=== PATIENT | male | born 1950 | race Caucasian/White ===

== ENCOUNTER 2021-02-27 14:59 | Observation (INO) | payer OTHER ==
[~2021-02-27] VITALS: Ht 175.3 cm; Wt 89.9 kg
[2021-02-27 15:27] LABS: BASOPHILS % (AUTO) 0.8 % (0.0-5.0); EOSINOPHILS % (AUTO) 2.9 % (0.0-8.0); LYMPHOCYTES % (AUTO) 21.3 % (21.0-51.0); MEAN CORPUSCULAR HEMOGLOBIN 27.5 pg (27.0-33.0); MEAN CORPUSCULAR HGB CONC 32.9 g/dL (32.0-36.0); MEAN CORPUSCULAR VOLUME 83.8 fL (79-99); MONOCYTES % (AUTO) 10.5 % (3.0-13.0); NEUTROPHILS % (AUTO) 63.8 % (40.0-77.0); PLATELET COUNT (AUTO) 245 K/uL (130-400); RED BLOOD CELL COUNT(AUTO) 5.01 MIL/uL (4.50-6.20); RED CELL DISTRIBUTION WIDTH 14.5 % (11.0-15.5); WHITE BLOOD COUNT (AUTO) 7.6 K/uL (4.8-10.8)
[2021-02-27 15:37] LABS: CREATININE 1.3 mg/dL (0.5-1.5); POTASSIUM 4.3 mmol/L (3.5-5.1)
[2021-02-27 15:39] LABS: INR 0.99 (0.85-1.15); PROTHROMBIN TIME 10.8 SEC (9.6-11.6)
[2021-02-27 15:41] LABS: PARTIAL THROMBOPLASTIN TIME 30.6 SEC (26.3-35.5)
[2021-02-27 15:46] LABS: B-TYPE NATRIURETIC PEPTIDE 7 pg/mL (0-100)
[2021-02-27 15:48] LABS: ALBUMIN 4.2 g/dL (3.5-5.0); BILIRUBIN,TOTAL 0.3 mg/dL (0.2-1.0); TOTAL PROTEIN, SERUM 7.3 g/dL (6.0-8.3)
[2021-02-27] MEDS ORDERED: MORPHINE 2 MG SYG IVP PRN (18:00)
[2021-02-27] MEDS ORDERED: ACETAMINOPHEN 325 MG TAB PO PRN (18:00)
[2021-02-27] MEDS ORDERED: DEXTROSE 50%-WATER 50 ML DISP.SYRIN IV PRN (18:00)
[2021-02-27] MEDS ORDERED: GLUCAGON 1MG KIT 1 MG ML IM PRN (18:00)
[2021-02-27] MEDS ORDERED: ONDANSETRON 4MG INJ IVP PRN (18:00)
[2021-02-27 18:17] LABS: APPEARANCE,URINE Clear (CLEAR); BILIRUBIN,URINE Negative (NEGATIVE); COLOR,URINE Yellow (YELLOW); GLUCOSE, URINE (UA) 500 mg/dL (NEGATIVE); KETONES,URINE Negative (NEGATIVE); LEUKOCYTE ESTERASE ,URINE Negative (NEGATIVE); NITRATE,URINE Negative (NEGATIVE); OCCULT BLOOD,URINE Negative (NEGATIVE); PROTEIN,URINE Negative (NEGATIVE)
[2021-02-27 18:27] LABS: BACTERIA,URINE Rare /HPF (None Seen); RBC,URINE 0-1 /HPF (0-1); WBC,URINE 0-1 /HPF (0-1)
[2021-02-27 18:28] LABS: MUCUS,URINE Rare LPF (None Seen); SQUAMOUS EPITHELIAL CELL,UR 0-2 /HPF (0-2)
[2021-02-27 18:33] LABS: HEMOGLOBIN A1C 6.8 % (4.0-6.0)
[2021-02-27 18:49] LABS: CHOLESTEROL 147 mg/dL (<200); HDL CHOLESTEROL 41 mg/dL (29-71); LDL DIRECT 75 mg/dL (0-99); TRIGLYCERIDES 216 mg/dL (30-200)
[2021-02-27] MEDS: FAMOTIDINE 20MG TAB PO SCH (21:00)
[2021-02-27] MEDS ORDERED: METO-408 PO (23:04)
[2021-02-27] MEDS ORDERED: SIMV-43 PO (23:17)
[2021-02-27] MEDS ORDERED: FLUT15.845 NS (23:17)
[2021-02-27] MEDS ORDERED: LEVO5TAB13 PO (23:17)
[2021-02-27] MEDS ORDERED: AMLO-257 PO (23:17)
[2021-02-27] MEDS ORDERED: FENO145T26 PO (23:17)
[2021-02-27] MEDS ORDERED: METF-444 PO (23:17)
[2021-02-27] MEDS ORDERED: MONT-39 PO (23:17)
[2021-02-27] MEDS ORDERED: HYDR-4154 PO (23:17)
[2021-02-27] MEDS ORDERED: PANT40TA54 PO (23:17)
[2021-02-27] MEDS ORDERED: RAMI10CA69 PO (23:17)
[2021-02-27] MEDS ORDERED: CYAN1TAB44 PO (23:17)
[2021-02-27] MEDS ORDERED: CLOP75TA32 PO (23:17)
[2021-02-27] MEDS ORDERED: APIX5TAB PO (23:17)
[2021-02-28] VITALS (9 sets, daily range): BP systolic 132–171; BP diastolic 61–86
[2021-02-28] MEDS: INSULIN HUMULIN R 100 UNIT/ML 3ML SQ SCH ×4 (00:01→16:30)
[2021-02-28 06:09] LABS: BASOPHILS % (AUTO) 0.7 % (0.0-5.0); EOSINOPHILS % (AUTO) 2.5 % (0.0-8.0); HEMATOCRIT 43.6 % (42-54); LYMPHOCYTES % (AUTO) 23.3 % (21.0-51.0); MEAN CORPUSCULAR HEMOGLOBIN 27.3 pg (27.0-33.0); MEAN CORPUSCULAR HGB CONC 32.3 g/dL (32.0-36.0); MEAN CORPUSCULAR VOLUME 84.5 fL (79-99); NEUTROPHILS % (AUTO) 60.9 % (40.0-77.0); PLATELET COUNT (AUTO) 242 K/uL (130-400); RED BLOOD CELL COUNT(AUTO) 5.16 MIL/uL (4.50-6.20); RED CELL DISTRIBUTION WIDTH 14.3 % (11.0-15.5); WHITE BLOOD COUNT (AUTO) 7.2 K/uL (4.8-10.8)
[2021-02-28 06:26] LABS: ALBUMIN 3.9 g/dL (3.5-5.0); BILIRUBIN,TOTAL 0.4 mg/dL (0.2-1.0); CREATININE 1.3 mg/dL (0.5-1.5); POTASSIUM 4.1 mmol/L (3.5-5.1)
[2021-02-28] MEDS: FAMOTIDINE 20MG TAB PO SCH (09:00)
[2021-02-28] MEDS ORDERED: ENOXAPARIN SODIUM 30 MG/0.3 ML SQ SCH (09:00)
[2021-02-28] MEDS ORDERED: ASPIRIN 81MG CHEW TAB PO SCH (09:00)
[2021-02-28] MEDS ORDERED: HEPARIN 10,000 UNIT/10ML (1,000 UNIT/ML) VIAL ONE (12:30)
[2021-02-28] MEDS ORDERED: NITROGLYCERIN 2 MG VIAL IV ONE (12:30)
[2021-02-28] MEDS ORDERED: SODIUM BICARB 50MEQ 50ML VIAL 50 ML ONE (12:30)
[2021-02-28] MEDS ORDERED: LIDOCAINE HCL 400MG/20ML VIAL ONE (12:31)
[2021-02-28] MEDS ORDERED: IOHEXOL 350 MG/ML 100ML INFUS..BTL IV ONE ×2 (12:31→14:39)
[2021-02-28] MEDS ORDERED: IOHEXOL-350 50ML VIAL IV ONE (12:31)
[2021-02-28] MEDS ORDERED: MEPERIDINE-PF 25 MG/ML SYG ONE ×2 (13:46→14:23)
[2021-02-28] MEDS ORDERED: MIDAZOLAM HCL 1 MG/ML 2ML VIAL ONE ×2 (13:46→14:23)
[2021-02-28] MEDS ORDERED: NICARDIPINE 25MG INJ IV ONE (14:09)
[2021-02-28] MEDS ORDERED: 0.9%NACL 1000ML 1,000 ML IV SCH (15:00)
[2021-02-28] MEDS ORDERED: FAMOTIDINE 20MG TAB ONE (19:20)
[2021-02-28] MEDS ORDERED: FENOFIBRATE NANOCRYSTALLIZED 145 MG TAB PO SCH (21:00)
[2021-02-28] MEDS ORDERED: SIMVASTATIN 20 MG TABLET PO SCH (21:00)
[2021-02-28] MEDS ORDERED: NON-FORMULARY MEDICATION 1 EACH (Hydralazine HCl 50 MG) PO SCH (21:00)
[2021-02-28] MEDS ORDERED: APIXABAN 5 MG TABLET PO SCH (21:00)
[2021-02-28] MEDS ORDERED: METFORMIN HCL 500 MG TABLET PO SCH (21:00)
[2021-02-28] MEDS ORDERED: Ramipril 10 MG PO SCH (21:00)
[2021-02-28] MEDS ORDERED: METOPROLOL SUCCINATE 50 MG TAB.SR.24H PO SCH (21:00)
[2021-02-28] MEDS ORDERED: NON-FORMULARY MEDICATION 1 EACH (Metoprolol Succinate 25 MG) PO SCH (21:00)
[2021-02-28] MEDS ORDERED: HYDRALAZINE 25MG TABLET PO SCH (21:00)
[2021-03-01] MEDS ORDERED: AMLODIPINE 5 MG TAB PO SCH (09:00)
[2021-03-01] MEDS ORDERED: Vitamin B Complex/Vit C/Folic Acid PO SCH (09:00)
[2021-03-01] MEDS ORDERED: PANTOPRAZOLE 40 MG TAB DR PO SCH (09:00)
[2021-03-01] MEDS ORDERED: CLOPIDOGREL 75MG TAB PO SCH (09:00)
[2021-03-01] MEDS ORDERED: [UNRECOGNIZED DRUG - OTHER] PO SCH (09:00)
[2021-03-01] MEDS ORDERED: MONTELUKAST SODIUM 10 MG TAB PO SCH (09:00)
[2021-03-01] MEDS ORDERED: CYANOCOBALAMIN PO SCH (09:00)
[2021-03-01] MEDS ORDERED: NON-FORMULARY MEDICATION 1 EACH (Fluticasone Propionate 15.8 ML) NS SCH (09:00)
[2021-03-01] MEDS ORDERED: FOLIC ACID PO SCH (09:00)
[2021-03-01] MEDS ORDERED: FLUTICASONE PROPIONATE 50MCG/SPRAY 16 GM BOTTLE EN SCH (09:00)
[2021-03-01] MEDS ORDERED: (Levocetirizine Dihydrochloride 5 MG) PO SCH (17:00)
== END 2021-02-28 20:15 | disposition home or self-care (01) ==
LOC: EDH 14:59 → EDHIP 17:37 → 4AH 02-28 03:00
PROVIDERS: ADMIT Hospitalist; ATTEND Hospitalist
DX: I25.119 Atherosclerotic heart disease of native coronary artery with unspecified angina pectoris (principal); I48.0 Paroxysmal atrial fibrillation; I49.1 Atrial premature depolarization; I10 Essential (primary) hypertension; E11.9 Type 2 diabetes mellitus without complications; E78.5 Hyperlipidemia, unspecified; E78.00 Pure hypercholesterolemia, unspecified; M19.90 Unspecified osteoarthritis, unspecified site; K21.9 Gastro-esophageal reflux disease without esophagitis; Z79.01 Long term (current) use of anticoagulants; Z95.5 Presence of coronary angioplasty implant and graft; Z79.899 Other long term (current) drug therapy
CPT/HCPCS: 36415 ×2; 71045; 80053 ×2; 80061; 81001; 82550 ×4; 82948 ×5; 83036; 83874 ×4; 83880; 84484 ×4; 85025 ×2; 85378; 85610; 85730; 93005 ×4; 93458; 99285; C1769; C1894; G0378 ×23; J1644 ×2; J2175 ×2; J2250 ×2; J3490 ×4; Q9965; Q9967 ×2; 99156; 99157

== ENCOUNTER → 2022-07-13 | Outpatient (CLI) | payer OTHER ==
[~2022-07-13] MED LIST: AMLO-257 PO; APIX5TAB PO; CLOP75TA32 PO; CYAN1TAB44 PO; FENO145T26 PO; FLUT15.845 NS; HYDR-4154 PO; LEVO5TAB13 PO; METF-444 PO; METO-408 PO; MONT-39 PO; PANT40TA54 PO; RAMI10CA69 PO; REGADENOSON 0.4 MG/5 ML PF SYG IVP ONE; SIMV-43 PO
== END | disposition home or self-care (01) ==
LOC: SHCH 08:10
PROVIDERS: ATTEND Internal Medicine Cardiovascular Disease
DX: I25.119 Atherosclerotic heart disease of native coronary artery with unspecified angina pectoris (principal)
CPT/HCPCS: 78452; 96374; 93017; J2785; A9500 ×2

== ENCOUNTER 2022-11-15 09:46 | Emergency (ER) | payer OTHER ==
[~2022-11-15] VITALS: Ht 175.3 cm; Wt 95.3 kg
[~2022-11-15 09:46] MED LIST changes: -REGADENOSON 0.4 MG/5 ML PF SYG IVP ONE
[2022-11-15] MEDS ORDERED: IBUP-2070 PO (16:31)
[2022-11-15] MEDS ORDERED: CYCL10TA16 PO (16:31)
[2022-11-15 16:48] VITALS: BP 138/62; PULSE 62; RESP 18; O2SAT 98
== END 2022-11-15 16:49 | disposition home or self-care (01) ==
LOC: EDH 09:46
DX: S86.112A Strain of other muscle(s) and tendon(s) of posterior muscle group at lower leg level, left leg, initial encounter (principal); E11.9 Type 2 diabetes mellitus without complications; E78.00 Pure hypercholesterolemia, unspecified; I25.10 Atherosclerotic heart disease of native coronary artery without angina pectoris; I10 Essential (primary) hypertension; M19.90 Unspecified osteoarthritis, unspecified site; Z79.01 Long term (current) use of anticoagulants; Z79.02 Long term (current) use of antithrombotics/antiplatelets; Z79.84 Long term (current) use of oral hypoglycemic drugs; Z79.899 Other long term (current) drug therapy; Z95.5 Presence of coronary angioplasty implant and graft; W01.0XXA Fall on same level from slipping, tripping and stumbling without subsequent striking against object, initial encounter; Y93.89 Activity, other specified; Y92.89 Other specified places as the place of occurrence of the external cause; Y99.8 Other external cause status
CPT/HCPCS: 73590; 93971

== ENCOUNTER → 2023-08-30 | Outpatient (CLI) | payer OTHER ==
[~2023-08-30] MED LIST changes: +CYCL10TA16 PO; -HYDR-4154 PO; +HYDR50TA37 PO; +IBUP-2070 PO; -RAMI10CA69 PO; +RAMI10CA76 PO
== END | disposition home or self-care (01) ==
LOC: RAH 13:44
PROVIDERS: ATTEND Internal Medicine
DX: L03.90 Cellulitis, unspecified (principal); R60.0 Localized edema
CPT/HCPCS: 93926; 93971

== ENCOUNTER → 2023-09-22 | Outpatient (CLI) | payer OTHER ==
[~2023-09-22] MED LIST changes: +IOHEXOL-350 75 ML VIAL IV ONE
== END | disposition home or self-care (01) ==
LOC: RAH 07:26
PROVIDERS: ATTEND Internal Medicine Cardiovascular Disease
DX: I70.0 Atherosclerosis of aorta (principal); Z95.5 Presence of coronary angioplasty implant and graft
CPT/HCPCS: 75635; Q9967

== ENCOUNTER → 2024-03-06 | Outpatient (CLI) | payer OTHER ==
[~2024-03-06] MED LIST changes: -IOHEXOL-350 75 ML VIAL IV ONE
--- NOTE | 2024-03-06 09:28 | HMCIMG ---
US ABDOMINAL COMPLETE REASON: ABD DISTENSION COMPARISON: None FINDINGS: There is moderate fatty infiltration of the liver. There are no focal mass lesions. Liver is borderline in size at 17 cm.There is a normal-appearing gallbladder. There is a 1.6 cm cyst upper pole right kidney. Kidneys appear otherwise normal in size and appearance. There is no evidence of mass, stone or hydronephrosis. Spleen and common duct appear normal. Aorta and inferior vena cava appear normal. The pancreas appears normal as well. IMPRESSION: 1. Mild to moderate hepatic steatosis, liver size is borderline. 2. 1.6 cm right renal cyst 3. Otherwise unremarkable abdomen sonogram.
== END | disposition home or self-care (01) ==
LOC: RAH 08:21
PROVIDERS: ATTEND Internal Medicine
DX: N28.1 Cyst of kidney, acquired (principal); K76.0 Fatty (change of) liver, not elsewhere classified; R14.0 Abdominal distension (gaseous)
CPT/HCPCS: 76700

== ENCOUNTER 2024-03-17 07:51 | Day surgery (SDC) | payer OTHER ==
[2024-03-15 09:16] LABS: BASOPHILS # (AUTO) 0.05 K/uL (0.00-0.20); BASOPHILS % (AUTO) 0.7 % (0.0-5.0); EOSINOPHILS # (AUTO) 0.27 K/uL (0.00-0.70); IMMATURE GRANULOCYTE ABSOLUTE 0.04 K/uL (0-1); LYMPHOCYTES # (AUTO) 1.5 K/uL (1.0-4.8); LYMPHOCYTES % (AUTO) 22.4 % (21.0-51.0); MEAN CORPUSCULAR HEMOGLOBIN 27.5 pg (27.0-33.0); MEAN CORPUSCULAR HGB CONC 32.2 g/dL (32.0-36.0); MEAN CORPUSCULAR VOLUME 85.5 fL (79-99); MONOCYTES # (AUTO) 0.9 K/uL (0.1-1.0); MONOCYTES % (AUTO) 13.8 % (3.0-13.0); NEUTROPHILS % (AUTO) 58.5 % (40.0-77.0); PLATELET COUNT (AUTO) 234 K/uL (130-400); RED BLOOD CELL COUNT(AUTO) 5.38 MIL/uL (4.50-6.20); WHITE BLOOD COUNT (AUTO) 6.8 K/uL (4.8-10.8)
[2024-03-15 09:18] LABS: APPEARANCE,URINE CLEAR (CLEAR); BILIRUBIN,URINE NEGATIVE (NEGATIVE); COLOR,URINE YELLOW (YELLOW); GLUCOSE, URINE (UA) >=1000 mg/dL (NEGATIVE); KETONES,URINE NEGATIVE (NEGATIVE); LEUKOCYTE ESTERASE ,URINE NEGATIVE Leu/uL (NEGATIVE); NITRATE,URINE NEGATIVE (NEGATIVE); OCCULT BLOOD,URINE NEGATIVE (NEGATIVE); PH,URINE 5.5 (5.0-8.0); PROTEIN,URINE 20 mg/dL (NEGATIVE); UROBILINOGEN,URINE 0.2 mg/dL (0.2-1.0)
[2024-03-15 09:27] LABS: INR <= 0.93 (0.85-1.15); PROTHROMBIN TIME 10.3 SEC (9.6-11.6)
--- NOTE | 2024-03-15 09:28 | EKG ---
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
[2024-03-15 09:29] LABS: PARTIAL THROMBOPLASTIN TIME 34.3 SEC (26.3-35.5)
[2024-03-15 09:32] VITALS: BP 170/78; PULSE 65; RESP 19; TEMP 97.5
[2024-03-15 09:41] LABS: ADD UA MICROSCOPIC YES
[2024-03-15 09:43] LABS: BACTERIA,URINE RARE /HPF (None Seen); MUCUS,URINE RARE LPF (None Seen); OTHER CASTS, URINE 1 /LPF (None Seen); RBC,URINE 0-1 /HPF (0-1); WBC,URINE 0-1 /HPF (0-1)
--- NOTE | 2024-03-15 10:09 | HMCIMG ---
CHEST 1VW HISTORY: Preop COMPARISON: 02/27/2021 FINDINGS: A frontal projection of the chest was obtained. No acute pulmonary infiltrates is seen. The heart is normal in size. Degenerative changes are seen. No evidence of aortic calcification is seen. IMPRESSION: 1. No acute pulmonary infiltrate is seen.
[2024-03-15 10:15] LABS: B-TYPE NATRIURETIC PEPTIDE < 5 pg/mL (0-100)
[~2024-03-17] VITALS: Ht 175.3 cm; Wt 95.4 kg
[2024-03-17] VITALS (14 sets, daily range): BP systolic 118–152; BP diastolic 51–80; PULSE 62–75; RESP 16–18; TEMP 98
[~2024-03-17 07:51] MED LIST changes: +ACET-2743 PO; -AMLO-257 PO; -CYAN1TAB44 PO; +CYCL-309 PO; -CYCL10TA16 PO; -FENO145T26 PO; -IBUP-2070 PO; -METO-408 PO; +TAMS-1 PO
[2024-03-17] MEDS: 0.9%NACL 1000ML 1,000 ML IV SCH (09:14)
[2024-03-17] MEDS ORDERED: HEParin 10,000 UNIT/10ML (1,000 UNIT/ML) VIAL ONE (10:38)
[2024-03-17] MEDS ORDERED: niCARDIpine 25MG INJ IV ONE (10:38)
[2024-03-17] MEDS ORDERED: IOHEXOL 350 MG/ML 100ML INFUS..BTL IV ONE (10:38)
[2024-03-17] MEDS ORDERED: LIDOCAINE HCL 400MG/20ML VIAL ONE (10:38)
[2024-03-17] MEDS ORDERED: HEParin-NS 1,000 UNIT/500 ML 1,000 ML IV ONE (10:38)
[2024-03-17] MEDS ORDERED: NITROGLYCERIN 50MG VIAL ONE (10:40)
[2024-03-17] MEDS ORDERED: MEPERIDINE-PF 25 MG/ML SYG ONE ×2 (10:54→11:07)
[2024-03-17] MEDS ORDERED: MIDAZOLAM HCL 1 MG/ML 2ML VIAL ONE ×2 (10:54→11:07)
[2024-03-17] MEDS ORDERED: DEXTROSE 50%-WATER 50 ML DISP.SYRIN IV PRN (12:00)
[2024-03-17] MEDS ORDERED: GLUCAGON 1MG KIT 1 MG ML IM PRN (12:00)
[2024-03-17] MEDS ORDERED: 0.9%NACL 1000ML 1,000 ML IV SCH (12:00)
--- NOTE | 2024-03-17 15:30 | NUR ---
d/c pt and spouse given d/c instructions. spouse voiced understanding. informed to hold metformin 2 days post and that as per dr ruiz pt to resume eliquis tonight. understanding also voiced. rt radial free from hematoma or bleeding. pt taken out via w/c in no distress. spouse at side
[2024-03-17] MEDS ORDERED: INSULIN humuLIN R 100 UNIT/ML 3ML SQ SCH (16:30)
--- NOTE | 2024-03-17 21:50 | PR ---
PROCEDURES: * left coronary arteriogram. * Conscious sedation for 30 minutes. * mid to distal LAD. * Recurrent angina. COMPLICATIONS: None. TOTAL CONTRAST: 40 mL. DESCRIPTION OF PROCEDURE: The patient was taken to the cardiac cardiac cath technician after appropriate operative consents were signed. He was prepped and draped in the usual fashion. After conscious sedation was administered, the right radial artery region was infiltrated with 2% Xylocaine without epinephrine. A 6-[place] radial sheath was advanced in retrograde fashion by the modified Seldinger technique. This was a slender radial sheath. A TIG 4 catheter was advanced over an indwelling 0.035 J wire. It was positioned in the left ventricular cavity. Left ventricular end-diastolic pressure measurement was obtained. Ventriculography was deferred and the patient had no gradient on pullback. The catheter was then engaged in the ostium of the right coronary artery. This was imaged in multiplane. The right coronary artery was a moderately large vessel that gave rise to an acute marginal, a small PDA and a branching PLVB system. The distal RCA had a 40% lesion. The PDA had a 90% ostial lesion; however, it was a very small vessel. There was a branching PLVB that had 40-50% stenotic lesions. that gave rise to LAD and . The LAD was moderately sized vessel that was noted to have minimal luminal irregularities. It gave rise to several diagonals and septal perforators. The first stent in the LAD was noted to be present in the mid segment just distal to the first diagonal. It was widely patent. This was deployed in 10/2021. The next stent was in the mid to distal segment just after the second diagonal and was also widely patent that was deployed in 06/2020. At this point, the procedure was completed, the catheter was withdrawn over an indwelling wire. Radial band was applied after the sheath was removed. The patient tolerated the procedure well and left the cardiac cath technician in stable condition. FINAL IMPRESSION: * Coronary artery disease. * Patent left anterior descending stent x 2. * No aortic stenosis. * Preserved left ventricular systolic function by noninvasive studies. PLAN: The patient will be continued on medical management. He is maintained on Eliquis and Plavix. For that reason, he is not on a baby aspirin. We will continue the current management. TID: [id number] RECEIPT: [id number]
== END 2024-03-17 15:30 | disposition home or self-care (01) ==
LOC: DAH 07:51
PROVIDERS: ATTEND Internal Medicine Cardiovascular Disease
DX: I25.118 Atherosclerotic heart disease of native coronary artery with other forms of angina pectoris (principal); I49.1 Atrial premature depolarization; I48.0 Paroxysmal atrial fibrillation; I10 Essential (primary) hypertension; E78.5 Hyperlipidemia, unspecified; E11.9 Type 2 diabetes mellitus without complications; Z95.5 Presence of coronary angioplasty implant and graft; Z82.49 Family history of ischemic heart disease and other diseases of the circulatory system; Z79.01 Long term (current) use of anticoagulants; Z95.1 Presence of aortocoronary bypass graft; Z98.890 Other specified postprocedural states; Z79.84 Long term (current) use of oral hypoglycemic drugs; Z79.899 Other long term (current) drug therapy
CPT/HCPCS: 80048; 83880; 85025; 85610; 85730; 81001; 36415; 71045; 93005; 93458; 82948; C1769; A4649; C1894; Q9965; J3490 ×3; J7030; J1644 ×2; J2250 ×2; J2175 ×2; Q9967; A4215; A4222; A4221; A4663; A4216; A4606; A4223 ×3; 99156; 99157

== ENCOUNTER 2024-11-08 09:00 | Inpatient (IN) | payer OTHER ==
[~2024-11-08] VITALS: Ht 175.3 cm; Wt 87.1 kg
[~2024-11-08 09:00] MED LIST changes: -ACET-2743 PO; -APIX5TAB PO; -CYCL-309 PO; -FLUT15.845 NS; -HYDR50TA37 PO; +NIFE-40 PO; -SIMV-43 PO; -TAMS-1 PO
--- NOTE | 2024-11-08 11:29 | NUR ---
RE: HELADIO SENT DR HUANG PICTURE OF PATIENT'S SHINGLES (RASH) ON LEFT LOWER CHEST. PER PATIENT, HE HAS HAD THE RASH FOR 2 WEEKS AND WAS TREATED WITH DULOXETINE AND BACITRACIN OINTMENT BY HIS PCP. PATIENT STATES THAT IT IS GETTING BETTER. RECEIVED ORDERS FROM DR HUANG TO CALL IN VALTREX PO TO PATIENT'S PHARMACY. CALLED PHARMACY AND SPOKE WITH VERONIKA (PHARMACIST). INSTRUCTED PATIENT TO START TAKING MEDICATION TODAY, PATIENT VERBALIZED UNDERSTANDING.
[2024-11-08 11:41] LABS: IMMATURE GRANULOCYTE ABSOLUTE 0.04 K/uL (0-1); NUCLEATED RED BLOOD CELLS 0.0 % (0.0-0.19); PLATELET COUNT (AUTO) 284 K/uL (130-400); RED BLOOD CELL COUNT(AUTO) 5.88 MIL/uL (4.50-6.20); RED CELL DISTRIBUTION WIDTH 13.2 % (11.0-15.5); WHITE BLOOD COUNT (AUTO) 9.1 K/uL (4.8-10.8)
[2024-11-08 11:50] LABS: CREATININE 1.1 mg/dL (0.5-1.3); GLOMERULAR FILTR. RATE CALC 71.0 mL/min (>90); GLUCOSE,RANDOM 190.0 mg/dL (70-105); SODIUM SERUM 141.0 mmol/L (136-145); UREA NITROGEN, BLOOD 16.0 mg/dL (7-18)
[2024-11-08 11:53] LABS: INR 1.04 (0.85-1.15)
[2024-11-08 12:01] LABS: APPEARANCE,URINE CLEAR (CLEAR); GLUCOSE, URINE (UA) NEGATIVE (NEGATIVE); LEUKOCYTE ESTERASE ,URINE NEGATIVE Leu/uL (NEGATIVE); NITRATE,URINE NEGATIVE (NEGATIVE); OCCULT BLOOD,URINE NEGATIVE (NEGATIVE)
[2024-11-08 12:10] LABS: ADD UA MICROSCOPIC NO
[2024-11-08] MEDS ORDERED: HYDR12.54 PO (12:41)
[2024-11-08] MEDS ORDERED: METO-409 PO (12:41)
[2024-11-08] MEDS ORDERED: HYDR50TA37 PO (12:41)
[2024-11-08] MEDS ORDERED: SIMV-46 PO (12:41)
[2024-11-08] MEDS ORDERED: APIX5TAB PO (12:41)
[2024-11-08] MEDS ORDERED: NITR0.4T50 SL (12:41)
[2024-11-08] MEDS ORDERED: DULO30CA52 PO (12:41)
[2024-11-08 12:58] VITALS: BP 112/66; PULSE 57; RESP 17; TEMP 97.4
--- NOTE | 2024-11-08 16:06 | HMCIMG ---
EXAM: CR Chest, 1 View. CLINICAL HISTORY: PREOP COMPARISON: 10/15/2024 FINDINGS: LUNGS: The lungs show no infiltrate or other acute finding. PLEURAL SPACES: No pleural effusion or pneumothorax. MEDIASTINUM: Cardiac size and mediastinal contours within normal limits. BONES: No acute osseous abnormality. IMPRESSION: No acute cardiopulmonary pathology is evident. /[place]
--- NOTE | 2024-11-08 17:00 | NUR ---
RE: ELIQUJAVID INFORMED REGINA HANLEY NP THAT PATIENT TOOK HIS ELIQUIS THIS MORNING AND ORDER STATES TO HOLD 48 HOURS. NO NEW ORDERS , OK TO PROCEED.
[2024-11-10] VITALS (19 sets, daily range): BP systolic 119–163; BP diastolic 53–90; PULSE 56–83; RESP 13–21; TEMP 97–98.3; O2SAT 97–99
[2024-11-10] MEDS: 0.9%NACL 1000ML 1,000 ML IV ONE (06:58)
[2024-11-10] MEDS ORDERED: MIDAZOLAM HCL 1 MG/ML 2ML VIAL ONE ×2 (07:28→07:29)
--- NOTE | 2024-11-10 09:14 | EKG ---
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
[2024-11-10] MEDS ORDERED: SODIUM BICARB 50MEQ 50ML VIAL 50 ML ONE (10:15)
[2024-11-10] MEDS ORDERED: LIDOCAINE HCL 400MG/20ML VIAL ONE (10:15)
[2024-11-10] MEDS ORDERED: IOHEXOL 350 MG/ML 100ML INFUS..BTL IV ONE ×2 (10:15→11:39)
[2024-11-10] MEDS ORDERED: HEParin-NS 1,000 UNIT/500 ML 1,500 ML IV ONE (10:16)
[2024-11-10] MEDS ORDERED: LIDOCAINE HCL 1% 20 ML VIAL ONE (10:48)
[2024-11-10] MEDS ORDERED: ATROPINE 1MG SYG IVP ONE (11:19)
[2024-11-10] MEDS: SUGAMMADEX SODIUM 200 MG/2 ML VIAL IV ONE (12:04)
[2024-11-10] MEDS: FAMOTIDINE 20MG VIAL IV ONE (12:04)
[2024-11-10] MEDS ORDERED: DEXTROSE 50%-WATER 50 ML DISP.SYRIN IV PRN (13:00)
[2024-11-10] MEDS ORDERED: GLUCAGON 1MG KIT 1 MG ML IM PRN (13:00)
[2024-11-10] MEDS ORDERED: NITROGLYCERIN 0.4 MG SL TAB SL PRN (13:00)
[2024-11-10] MEDS ORDERED: NOREPINEPHRIN 4MG/NS 250ML 250 ML IV SCH (13:00)
[2024-11-10 13:56] LABS: IMMATURE GRANULOCYTE ABSOLUTE 0.04 K/uL (0-1); NUCLEATED RED BLOOD CELLS 0.0 % (0.0-0.19); PLATELET COUNT (AUTO) 193 K/uL (130-400); RED BLOOD CELL COUNT(AUTO) 5.15 MIL/uL (4.50-6.20); RED CELL DISTRIBUTION WIDTH 13.4 % (11.0-15.5); WHITE BLOOD COUNT (AUTO) 8.1 K/uL (4.8-10.8)
[2024-11-10 14:15] LABS: ASPARTATE AMINOTRANSFERASE 21.0 U/L (10-37); CREATININE 0.9 mg/dL (0.5-1.3); GLOMERULAR FILTR. RATE CALC 91.0 mL/min (>90); GLUCOSE,RANDOM 164.0 mg/dL (70-105); SODIUM SERUM 140.0 mmol/L (136-145); TOTAL PROTEIN, SERUM 6.2 g/dL (6.0-8.3); UREA NITROGEN, BLOOD 19.0 mg/dL (7-18)
[2024-11-10] MEDS ORDERED: PoTASSium chl 10% ELIXIR 20MEQ 20 MEQ/15 ML UDCUP PO PRN (15:00)
[2024-11-10] MEDS ORDERED: PoTASSium chloRIDE 20MEQ ER 20 MEQ ERTAB PO PRN (15:00)
--- NOTE | 2024-11-10 15:06 | HP ---
[facility] HISTORY & PHYSICAL Date Patient Seen: Nov 10, 2024 Time of Visit: 14:16 Supervising Physician: Ras Serra MD Primary Care Physician: Sheridan Rosenbaum MD Outpatient Specialists: Dr Huang Inpatient Consults: Dr Huang PROBLEM LIST: S/P aortic arch endoluminal graft placement on 11/10/[address] 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 on 10/16/24 CTA Coronary artery disease status post PCI with stent placement on Plavix Chronic atrial fibrillation on chronic anticoagulation with the Eliquis Diastolic heart failure with the EF of 60 65% on echo September of 2024 COPD Current shingle infection POA Left flank vesicular rash Gastritis Hyperglycemia Hypomagnesemia ODILON on CPAP at home HPI: 4-year-old male with a past medical history of coronary artery disease status post right and left coronary angiogram and multiple stent placements via PCI, stage I diastolic heart failure with EF of 60-65%, chronic atrial fibrillation on chronic anticoagulation with Eliquis, COPD, gastritis, recent shingles infection with dry blisters to the left flank area, and CTA finding on 10/16/24 over 4 x 5 mm penetrating arteriosclerotic ulcer of the superior aspect of the aortic arch who presented to [facility] today for elective thoracic aorta endoluminal graft placement by Dr. Huang. On assessment patient is awake alert and oriented x3. He is forgetful. Current vital signs of heart rate of 61 respiratory rate of 18 blood pressure 150/72 on the monitor saturating 97% on 2 L via nasal cannula and afebrile. There is no focal deficits. GCS of 15. Pressure dressing to bilateral femoral sites with no signs of hematoma or bruising. Bilateral pedal pulses present +1. Patient denies any current chest pain palpitations or shortness for breath at this time. He does report he uses a CPAP at home for ODILON. We will order CPAP of 10 with a FiO2 of 40% at HS. We will continue to follow cardiology recommendations. PAST MEDICAL HX: see above PAST SURGICAL HX: noncontributory SOCIAL HISTORY: No tobacco, ETOH, or illicit drug use Coded Allergies: No Known Drug Allergies (Unverified Allergy, Unknown, 02/27/21) REVIEW OF SYSTEMS: Const: no fever, fatigue, or weight changes Eyes: no recent vision problems ENT: No congestion, ear pain, or sore throat C/V: no chest pain, palpitations or edema Resp: No cough, congestion, wheezing , or Shortness of breath GI: No abdominal pain, nausea, vomiting, constipation, or diarrhea : No incontinence of or dyuria M/S: No joint or pain swelling Skin: + vesicular rash to left flank Neuro: no headache, focal numbness, or weakness, dizziness or seizures Psych: no depression or anxiety Heme: no abnormal bruising or bleeding Lymph: no swollen glands PHYSICAL EXAM: GENERAL: alert, weak, awake oriented x 3 HEENT: EOMI, Sclera non icteric, moist mucosa NECK: Supple, no JVD, trachea midline LUNGS: Expiratory wheezes to right lower lobe HEART: Regular rate and rhythm. Normal S1 and S2, without murmurs ABD: Abdomen soft, nontender. Bowel sounds present EXT: Dressing to right and left femoral No clubbing cyanosis or edema clean dry and intact.. Bilateral pedal pulses present +1. NEURO: Alert and oriented to person, follows commands Vital Signs (last 8hr) Date Time Temp Pulse Resp B/P (MAP) Pulse Ox O2 Delivery O2 Flow Rate FiO2 11/10/24 07:45 97.0 56 18 143/90 97 Room Air 21 LABS: Hematology Labs: Test 11/10/24 13:45 Range/Units White Blood Count 8.1 4.8-10.8 K/uL Red Blood Count 5.15 4.50-6.20 MIL/uL Hemoglobin 14.2 14.0-18.0 g/dL Hematocrit 41.8 L 42-54 % Mean Corpuscular Volume 81.2 79-99 fL Mean Corpuscular Hemoglobin 27.6 27.0-33.0 pg Mean Corpuscular Hemoglobin Concent 34.0 32.0-36.0 g/dL Red Cell Distribution Width 13.4 11.0-15.5 % Platelet Count 193 # 130-400 K/uL Mean Platelet Volume 10.8 H 7.5-10.5 fL Immature Granulocyte % (Auto) 0.5 0-1 % Neutrophils (%) (Auto) 58.9 40.0-77.0 % Lymphocytes (%) (Auto) 27.6 21.0-51.0 % Monocytes (%) (Auto) 10.3 3.0-13.0 % Eosinophils (%) (Auto) 2.0 0.0-8.0 % Basophils (%) (Auto) 0.7 0.0-5.0 % Neutrophils # (Auto) 4.8 1.8-7.7 K/uL Lymphocytes # (Auto) 2.2 1.0-4.8 K/uL Monocytes # (Auto) 0.8 0.1-1.0 K/uL Eosinophils # (Auto) 0.16 0.00-0.70 K/uL Basophils # (Auto) 0.06 0.00-0.20 K/uL Absolute Immature Granulocyte (auto 0.04 0-1 K/uL Nucleated Red Blood Cells 0.0 0.0-0.19 % Chemistry Labs: Test 11/10/24 13:45 11/10/24 13:37 Range/Units Sodium Level 140 136-145 mmol/L Potassium Level 3.9 3.5-5.1 mmol/L Chloride Level 106 101-111 mmol/L Carbon Dioxide Level 27 21-32 mmol/L Blood Urea Nitrogen 19 H 7-18 mg/dL Creatinine 0.9 0.5-1.3 mg/dL Glomerular Filtration Rate Calc 91 >90 mL/min Random Glucose 164 H 70-105 mg/dL Lactic Acid Level 1.1 0.8-2.5 mmol/L Total Calcium 8.4 L 8.5-10.1 mg/dL Magnesium Level 1.50 L 1.80-2.40 mg/dL Total Bilirubin 0.4 0.2-1.0 mg/dL Aspartate Amino Transf (AST/SGOT) 21 10-37 U/L Alanine Aminotransferase (ALT/SGPT) 23 12-78 U/L Alkaline Phosphatase 66 50-136 U/L Total Protein 6.2 6.0-8.3 g/dL Albumin 3.5 3.5-5.0 g/dL Whole Blood Glucose 141 H 70-110 MG/DL DIAGNOSTICS / RADIOLOGY RESULTS: [address] [address] IMAGING REPORT Signed PATIENT: SHELBY VALENCIA MR#: [id number] : 1950 SEX: M AGE: 74 LOCATION: ORDER 1114 STATUS: PRE IN REPORT#: [id number] SERVICE 1113 REASON: PREOP ORDERING PHYSICIAN: Flakita HUANG II, MD PROCEDURE: CXR1VW - CHEST 1VW EXAM: CR Chest, 1 View. CLINICAL HISTORY: PREOP COMPARISON: 10/15/2024 FINDINGS: LUNGS: The lungs show no infiltrate or other acute finding. PLEURAL SPACES: No pleural effusion or pneumothorax. MEDIASTINUM: Cardiac size and mediastinal contours within normal limits. BONES: No acute osseous abnormality. IMPRESSION: No acute cardiopulmonary pathology is evident. /[place] DICTATED BY: DILIP CHAMORRO MD DATE: 11/08/241704 ELECTRONICALLY SIGNED BY: DILIP CHAMORRO MD DATE: 11/08/241704 PLAN Continuous cardiac and blood pressure monitoring Maintain blood pressure parameters of systolic blood pressure 1 40-160 per Cardiology recommendations Hold antihypertensive medications if systolic blood pressure less than 120 Continue Plavix as ordered by Cardiology Assess for bleeding patient does not recall last time he took his Eliquis. Follow serial H&H , monitor for unexplained hypotension and tachycardia maintain supine for 5 hours per cardiology orders, NEURO: Minimize central acting medications as possible. Fall Precautions. Well lighted room through the day and minimize interruptions through the night to prevent acute delirium. PULMONARY: Supplemental 02 as needed Titrate Fio2 to keep Spo2 > or = 90% DuoNebs and CPT as needed IS hourly while awake for pulmonary hygiene Out of bed to chair as tolerated CPAP of 10 with a FiO2 of 40% q.h.s. CARDIOVASCULAR: Follow hemodynamics. Titrate vasopressor to keep MAP >65 or systolic blood pressure >95mmHg DRIPS: none LINES: PIV GI & NUTRITION: Continue nutritional support Aspirations precautions Prokinetic agents and laxatives as needed KIDNEYS & ELECTROLYTES: Strict monitoring of intake and output Daily weights Avoid nephrotoxic agents Monitor electrolytes and replace as needed Goal urine output of 30mL/hr or 0.5mL/kg/hr ENDOCRINE: Maintain blood glucose between 100-180 at all times. Insulin sliding scale for blood glucose management INFECTIOUS DISEASE: Trend temperature. Crockett-culture if febrile. Micro: [ ] Antibiotics: ancef HEMATOLOGY & COAGULATION: Monitor H&H. Keep Hgb > 7 Transfuse 1 unit of PRBC for Hgb < 7 Transfuse 1 pack of platelets of platelets < 20, 000 Watch for any signs and symptoms of bleeding SKIN: Pressure ulcer prevention per facility protocol Rehab: PT/OT Prophylaxis: GI: protonix DVT: SCDs Code Status: Full Resuscitation Disposition: ICU Other: Total patient care time exceeds 35 minutes excluding all procedures. Case was discussed and seen with my supervising physician. The above plan was formulated and agreed upon. ATTESTATION BY PHYSICIAN The patient has been seen and evaluated, the case has been discussed with the INGOT WEIGHER, I agree with the clinical findings and plan of care. Ras Serra MD, [facility] Nov 10, 2024 15:06
--- NOTE | 2024-11-10 15:19 | HMCIMG ---
CHEST 1VW REASON: post arteriogram COMPARISON: Study from 11/08/2024 is available. FINDINGS: Single view of the chest was obtained. Lungs are clear. Heart size is normal. There is no pulmonary vascular congestion. There is aortic stent extending from the arch to the descending proximal thoracic aorta. Mediastinum and bony thorax appear unremarkable. IMPRESSION: 1. No evidence of airspace consolidation or pulmonary venous congestion..
[2024-11-10] MEDS: MAGNESIUM 2GM PREMIX 50ML 50 ML IV PRN (16:52)
[2024-11-10] MEDS: 0.9%NACL 1000ML 1,000 ML IV SCH (16:54)
[2024-11-10] MEDS: LEVOCETIRIZINE DIHYDROCHLORIDE 5 MG PO SCH (19:21)
--- NOTE | 2024-11-10 20:02 | CCATH ---
PROCEDURES: * Selective left subclavian artery angiography. * Placement of a Valiant thoracic endoluminal graft 30 x 30 x 100 mm in the descending thoracic aorta. * Placement of pigtail catheter in the aortic arch. * Aortic arch and descending aortic angiogram. * Percutaneous access and repair of the right common femoral artery for an 18-[place] sheath. * Percutaneous access and repair of the left common femoral artery for a 6-[place] sheath. INDICATIONS: Penetrating thoracic ulcer with an intramedullary hematoma measuring approximately 10 mm in the descending thoracic aorta. COMPLICATIONS: None. TOTAL CONTRAST: Approximately 50 mL. OPERATORS: Neto Mccullough II, MD. ANESTHESIA: General anesthesia with intra-articular intubation. ESTIMATED BLOOD LOSS: Less than 25 mL. DESCRIPTION OF PROCEDURE: The patient was taken to the Cardiac Catheterization Lab after appropriate operative consents were signed. He was prepped and draped in the usual fashion. After the patient was under general anesthesia, the right and left common femoral arteries were accessed utilizing ultrasound guidance. We upsized to a 6-[place] sheath on the right and a 6-[place] sheath on the left that were advanced in retrograde fashion via modified Seldinger technique. Pre-close sutures were placed in the right common femoral artery at 10 o'clock and 1 o'clock positions, respectively. We were then able to upsize over an [place] steered wire that was utilized as a rail. Then, we were able to upsize all the way to an 18-[place]ran and the 18-[place]orran sheath was introduced. At this point, by the left common femoral artery, we utilized a left coronary bypass graft guide catheter 6-[place], which was advanced over an indwelling wire and selective irrigation of the left subclavian artery. Left subclavian artery was imaged and utilized as a landmark with placement of a wire to ensure adequate placement of the endoluminal graft. At this point, the endoluminal graft was placed via a bareback approach after the sheath was removed and positioned just distal to the left subclavian artery takeoff. It was deployed completely. The pigtail catheter was then advanced and positioned in the aortic arch. Aortic arch angiogram was performed revealing patent brachiocephalic, left common carotid and left subclavian artery with an adequately positioned endoluminal graft. At this point, the procedure was completed, Perclose was utilized in the left common femoral artery with good hemostasis. The pre-close sutures were utilized and finalized in the right common femoral artery; however, there was still some oozing and we elected to advance the third Perclose at the 12 o'clock position with good hemostasis. At this point, the procedure was completed. The patient tolerated it well and left the Cardiac Catheterization Lab in stable condition. FINAL IMPRESSION: Successful endoluminal graft placement in the descending thoracic aorta with 30 x 30 x 100 mm Valiant thoracic Medtronic graft with good angiographic results. PLAN: Medical management. TID: [id number] RECEIPT: [id number]
[2024-11-11] VITALS (16 sets, daily range): BP systolic 136–157; BP diastolic 56–102; PULSE 66–87; RESP 17–24; TEMP 98–100.1; O2SAT 96–99
[2024-11-11 04:10] LABS: IMMATURE GRANULOCYTE ABSOLUTE 0.06 K/uL (0-1); NUCLEATED RED BLOOD CELLS 0.0 % (0.0-0.19); PLATELET COUNT (AUTO) 169 K/uL (130-400); RED BLOOD CELL COUNT(AUTO) 4.81 MIL/uL (4.50-6.20); RED CELL DISTRIBUTION WIDTH 13.4 % (11.0-15.5); WHITE BLOOD COUNT (AUTO) 11.1 K/uL (4.8-10.8)
[2024-11-11 04:27] LABS: CREATININE 1.0 mg/dL (0.5-1.3); GLOMERULAR FILTR. RATE CALC 80.0 mL/min (>90); GLUCOSE,RANDOM 120.0 mg/dL (70-105); SODIUM SERUM 143.0 mmol/L (136-145); UREA NITROGEN, BLOOD 13.0 mg/dL (7-18)
[2024-11-11] MEDS: LISINOPRIL 20 MG TABLET PO SCH (09:09)
--- NOTE | 2024-11-11 09:23 | PN ---
[facility] PROGRESS NOTE Date Patient Seen: Nov 11, 2024 Time of Visit: 09:23 Supervising Physician: [ ] Primary Care Physician: Sheridan Rosenbaum MD Outpatient Specialists: Dr Mccullough Inpatient Consults: Dr Mccullough PROBLEM LIST: S/P aortic arch endoluminal graft placement on 11/10/[address] 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 on 10/16/24 CTA Coronary artery disease status post PCI with stent placement on Plavix Chronic atrial fibrillation on chronic anticoagulation with the Eliquis Diastolic heart failure with the EF of 60 65% on echo September of 2024 COPD Current shingle infection POA Left flank vesicular rash Gastritis Hyperglycemia Hypomagnesemia ODILON on CPAP at home INTERVAL HISTORY: [ ] REVIEW OF SYSTEMS: Const: no fever, fatigue, or weight changes Eyes: no recent vision problems ENT: No congestion, ear pain, or sore throat C/V: no chest pain, palpitations or edema Resp: No cough, congestion, wheezing , or Shortness of breath GI: No abdominal pain, nausea, vomiting, constipation, or diarrhea : No incontinence of or dyuria M/S: No joint or pain swelling Skin: + vesicular rash to left flank Neuro: no headache, focal numbness, or weakness, dizziness or seizures Psych: no depression or anxiety Heme: no abnormal bruising or bleeding Lymph: no swollen glands PHYSICAL EXAM: GENERAL: alert, weak, awake oriented x 3 HEENT: EOMI, Sclera non icteric, moist mucosa NECK: Supple, no JVD, trachea midline LUNGS: Expiratory wheezes to right lower lobe HEART: Regular rate and rhythm. Normal S1 and S2, without murmurs ABD: Abdomen soft, nontender. Bowel sounds present EXT: Dressing to right and left femoral No clubbing cyanosis or edema clean dry and intact.. Bilateral pedal pulses present +1. NEURO: Alert and oriented to person, follows commands Vital Signs (last 8hr) Date Time Temp Pulse Resp B/P (MAP) Pulse Ox O2 Delivery O2 Flow Rate FiO2 11/11/24 07:00 68 21 151/68 97 Room Air 11/11/24 06:43 87 20 N/Cannula Low lpm 2.0 28 11/11/24 06:00 70 18 137/59 98 Room Air 11/11/24 05:00 66 19 155/66 98 Room Air 21 11/11/24 04:00 99 Nasal Cannula* 2 28 11/11/24 04:00 98.4 86 17 157/102 98 Room Air 11/11/24 03:00 68 18 157/78 98 Room Air 21 11/11/24 02:00 69 20 136/56 98 Room Air 21 LABS: Hematology Labs: Test 11/11/24 03:52 Range/Units White Blood Count 11.1 #H 4.8-10.8 K/uL Red Blood Count 4.81 4.50-6.20 MIL/uL Hemoglobin 13.2 L 14.0-18.0 g/dL Hematocrit 40.9 L 42-54 % Mean Corpuscular Volume 85.0 79-99 fL Mean Corpuscular Hemoglobin 27.4 27.0-33.0 pg Mean Corpuscular Hemoglobin Concent 32.3 32.0-36.0 g/dL Red Cell Distribution Width 13.4 11.0-15.5 % Platelet Count 169 130-400 K/uL Mean Platelet Volume 10.5 7.5-10.5 fL Immature Granulocyte % (Auto) 0.5 0-1 % Neutrophils (%) (Auto) 75.7 40.0-77.0 % Lymphocytes (%) (Auto) 11.4 L 21.0-51.0 % Monocytes (%) (Auto) 11.3 3.0-13.0 % Eosinophils (%) (Auto) 0.8 0.0-8.0 % Basophils (%) (Auto) 0.3 0.0-5.0 % Neutrophils # (Auto) 8.4 H 1.8-7.7 K/uL Lymphocytes # (Auto) 1.3 1.0-4.8 K/uL Monocytes # (Auto) 1.3 H 0.1-1.0 K/uL Eosinophils # (Auto) 0.09 0.00-0.70 K/uL Basophils # (Auto) 0.03 0.00-0.20 K/uL Absolute Immature Granulocyte (auto 0.06 0-1 K/uL Nucleated Red Blood Cells 0.0 0.0-0.19 % Chemistry Labs: Test 11/11/24 03:52 11/10/24 19:40 11/10/24 13:45 Range/Units Sodium Level 143 136-145 mmol/L Potassium Level 4.2 3.5-5.1 mmol/L Chloride Level 107 101-111 mmol/L Carbon Dioxide Level 28 21-32 mmol/L Blood Urea Nitrogen 13 7-18 mg/dL Creatinine 1.0 0.5-1.3 mg/dL Glomerular Filtration Rate Calc 80 >90 mL/min Random Glucose 120 H 70-105 mg/dL Total Calcium 8.4 L 8.5-10.1 mg/dL Magnesium Level 1.70 L 1.80-2.40 mg/dL Whole Blood Glucose 140 H 70-110 MG/DL Hemoglobin A1c 8.1 H 4.0-6.0 % Estimated Average Glucose (eAG) 186 H 70-126 mg/dL Lactic Acid Level 1.1 0.8-2.5 mmol/L Total Bilirubin 0.4 0.2-1.0 mg/dL Aspartate Amino Transf (AST/SGOT) 21 10-37 U/L Alanine Aminotransferase (ALT/SGPT) 23 12-78 U/L Alkaline Phosphatase 66 50-136 U/L Total Protein 6.2 6.0-8.3 g/dL Albumin 3.5 3.5-5.0 g/dL DIAGNOSTICS / RADIOLOGY RESULTS: [ ] PLAN Continuous cardiac and blood pressure monitoring Maintain blood pressure parameters of systolic blood pressure 1 40-160 per Cardiology recommendations Hold antihypertensive medications if systolic blood pressure less than 120 Continue Plavix as ordered by Cardiology Assess for bleeding patient does not recall last time he took his Eliquis. Follow serial H&H , monitor for unexplained hypotension and tachycardia maintain supine for 5 hours per cardiology orders, NEURO: Minimize central acting medications as possible. Fall Precautions. Well lighted room through the day and minimize interruptions through the night to prevent acute delirium. PULMONARY: Supplemental 02 as needed Titrate Fio2 to keep Spo2 > or = 90% DuoNebs and CPT as needed IS hourly while awake for pulmonary hygiene Out of bed to chair as tolerated CPAP of 10 with a FiO2 of 40% q.h.s. CARDIOVASCULAR: Follow hemodynamics. Titrate vasopressor to keep MAP >65 or systolic blood pressure >95mmHg DRIPS: none LINES: PIV GI & NUTRITION: Continue nutritional support Aspirations precautions Prokinetic agents and laxatives as needed KIDNEYS & ELECTROLYTES: Strict monitoring of intake and output Daily weights Avoid nephrotoxic agents Monitor electrolytes and replace as needed Goal urine output of 30mL/hr or 0.5mL/kg/hr ENDOCRINE: Maintain blood glucose between 100-180 at all times. Insulin sliding scale for blood glucose management INFECTIOUS DISEASE: Trend temperature. Crockett-culture if febrile. Micro: [ ] Antibiotics: ancef HEMATOLOGY & COAGULATION: Monitor H&H. Keep Hgb > 7 Transfuse 1 unit of PRBC for Hgb < 7 Transfuse 1 pack of platelets of platelets < 20, 000 Watch for any signs and symptoms of bleeding SKIN: Pressure ulcer prevention per facility protocol Rehab: PT/OT Prophylaxis: GI: protonix DVT: SCDs Code Status: Full Resuscitation Disposition: ICU Other: Total patient care time exceeds 35 minutes excluding all procedures. Case was discussed and seen with my supervising physician. The above plan was formulated and agreed upon. KAILYN LAM [facility] Nov 11, 2024 09:23
--- NOTE | 2024-11-11 09:52 | PN ---
This is a 74-year-old male with a history of coronary artery disease status post PTCA/PCI of the LAD 07/19/2020, peripheral arterial disease, paroxysmal atrial fibrillation, hypertension and history of right knee surgery. He is currently being treated for shingles involving the left anterior thoracic dermatome. He was admitted for elective endoluminal graft placement to the descending thoracic aorta 11/10/2024 secondary to a penetrating ulcer with an intramedullary hematoma measuring 10 mm in the descending thoracic aorta. Postop chest x-ray 11/10/2024 shows clear lungs without evidence of pneumothorax, no pleural effusions. He is currently in sinus rhythm with heart rates in the 60s to 70s. His most recent blood pressure is 155/64. He denies chest pain, shortness or breath, weakness or dizziness. On exam, he is in no acute distress, regular rate and rhythm, lungs are clear to auscultation bilaterally, bowel sounds heard in all quadrants, lower extremities warm to touch. Assessment: 1. Penetrating ulcer with an intramedullary hematoma to the descending thoracic aorta. 2. Status post endoluminal graft placement to the descending thoracic aorta 11/10/2024. 3. Hypertension. 4. Shingles. 5. Coronary artery disease status post PTCA/PCI of the LAD in June 2020. 6. Paroxysmal atrial fibrillation. Plan: 1. He is status post elective endoluminal graft placement to the descending thoracic aorta 11/10/2024. His blood pressure has been stable following the procedure. 2. Anticipate discharge home today. Recommend ambulation prior to discharge. 3. We will resume his home medications on discharge including hydralazine 50 mg 3 times daily, hydrochlorothiazide 12.5 mg once daily, metoprolol succinate 100 mg once daily, simvastatin 40 mg once daily, nifedipine 30 mg once daily, ramipril 10 mg twice daily and clopidogrel 75 mg once daily. 4. Resume Eliquis 11/13/2024. 5. Follow-up with Dr. Jara in 1-2 weeks. Vitals/Labs Vital Signs Date Time Temp Pulse Resp B/P (MAP) Pulse Ox O2 Delivery O2 Flow Rate FiO2 11/11/24 07:00 68 21 151/68 97 Room Air 21 11/11/24 06:43 2.0 11/11/24 04:00 98.4 Laboratory Tests 11/10/24 13:45 11/10/24 20:05 11/11/24 03:52 ROBERT RODRIGUEZ Nov 11, 2024 09:52
[2024-11-11] MEDS ORDERED: LISI20TA24 PO (14:03)
[2024-11-11] MEDS ORDERED: VALA500T PO (14:03)
--- NOTE | 2024-11-11 14:25 | NUR ---
PT DISCHARGED AFTER MEDICATIONS AND DISCHARGE INSTRUCTIONS REVIEWED.
--- NOTE | 2024-11-11 20:53 | DS ---
[facility] DISCHARGE SUMMARY Date Patient Seen: Nov 11, 2024 Time of Visit: 20:47 Supervising Physician: Ravin Simmons MD Primary Care Physician: Sheridan Rosenbaum MD Outpatient Specialists: Dr Mccullough Inpatient Consults: Dr Mccullough PROBLEM LIST: S/P aortic arch endoluminal graft placement on 11/10/[address] 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 Procedure completed successfully with no immediate complications. Postop patient was awake alert and oriented x3 but forgetful. Vital signs were stable with the last 24 hours. No neuro deficits noted and GCS of 15 Access sides pressure dressing to bilateral femorals with no signs and symptoms of hematoma or bruising. Bilateral pedal pulses plus one. CPAP was ordered inpatient given his history of ODILON Today he was re-evaluated by Cardiology who cleared for discharge. He has been having stable blood pressure for the last 24 hours. Patient to continue his home medications as recommended by Cardiology which include: as documented below. Patient to restart Eliquis [id number]. Patient is stable for discharge. 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 He is status post elective endoluminal graft placement to the descending thoracic aorta 11/10/2024. His blood pressure has been stable following the procedure. 2. Anticipate discharge home today. Recommend ambulation prior to discharge. 3. We will resume his home medications on discharge including hydralazine 50 mg 3 times daily, hydrochlorothiazide 12.5 mg once daily, metoprolol succinate 100 mg once daily, simvastatin 40 mg once daily, nifedipine 30 mg once daily, ramipril 10 mg twice daily and clopidogrel 75 mg once daily. 4. Resume Eliquis 11/13/2024. 5. Follow-up with Dr. Jara in 1-2 weeks. PROCEDURES: as mentioned above Pt hemodynamically stable and afebrile at time of discharge. PCP notified of patients admission, hospital course and discharge. New Medications: Lisinopril (Lisinopril) 20 Mg Tablet 20 MG PO DAILY, #30 TAB 1 Refill Valacyclovir HCl (Valtrex) 500 Mg Tablet 1000 MG PO Q8H, #12 TAB 0 Refills Continued Medications: Apixaban (Eliquis) 5 Mg Tablet 5 MG PO BID, TAB Clopidogrel Bisulfate (Clopidogrel) 75 Mg Tablet 75 MG PO DAILY, TAB Duloxetine HCl (Duloxetine HCl) 30 Mg Capsule.dr 30 MG PO HS, CAP Hydralazine HCl (Hydralazine HCl) 50 Mg Tablet 50 MG PO TID, TAB Hydrochlorothiazide (Hydrochlorothiazide) 12.5 Mg Tablet 12.5 MG PO DAILY, TAB Levocetirizine Dihydrochloride (Levocetirizine Dihydrochloride) 5 Mg Tablet 1 TAB PO HS for 30 Days, #30 TAB 0 Refills Metformin HCl (Metformin HCl) 500 Mg Tablet 1 TAB PO BID for 30 Days, #60 TAB 0 Refills Metoprolol Succinate (Metoprolol Succinate) 100 Mg Tab.er.24h 100 MG PO DAILY, TAB Montelukast Sodium (Montelukast Sodium) 10 Mg Tablet 1 TAB PO DAILY for 30 Days, #30 TAB 0 Refills Nifedipine (Nifedipine ER) 30 Mg Tab.er.24 60 MG PO DAILY for 30 Days, #30 TAB Nitroglycerin (Nitroglycerin) 0.4 Mg Tab.subl 0.4 MG SL AD PRN for CHEST PAIN, TAB.SL Pantoprazole Sodium (Pantoprazole Sodium) 40 Mg Tablet.dr 40 MG PO DAILY, TAB Simvastatin (Simvastatin) 40 Mg Tablet 40 MG PO DAILY, TAB Discontinued Medications: Ramipril (Ramipril) 10 Mg Capsule 1 CAP PO BID for 30 Days, #30 CAP 0 Refills PHYSICAL EXAM: GENERAL: alert, weak, awake oriented x 3 HEENT: EOMI, Sclera non icteric, moist mucosa NECK: Supple, no JVD, trachea midline LUNGS: Clear to all lobes. HEART: Regular rate and rhythm. Normal S1 and S2, without murmurs ABD: Abdomen soft, nontender. Bowel sounds present EXT: Dressing to right and left femoral No clubbing cyanosis or edema clean dry and intact.. Bilateral pedal pulses present +1. NEURO: Alert and oriented to person, follows commands FOLLOW-UP: Follow-up with PCP in 2-3 days RECOMMENDATIONS: See Discharge Instructions This case was seen and discussed with my supervising physician. More than 30 minutes spent on discharge process, including evaluation of the patient, discussion with nursing staff, medication reconciliation and follow-up appointments ATTESTATION BY PHYSICIAN I reviewed the documentation, medical decision making, and treatment plan as noted by the mid-level provider above. I agree with the findings and plan of care. Bam Simmons MD, [facility] Nov 11, 2024 20:53
== END 2024-11-11 16:18 | disposition home or self-care (01) | DRG 220 ==
LOC: EDSTATUS 09:00 → DAHIP 11-10 06:48 → 2BH 11-10 12:06
PROVIDERS: ADMIT Internal Medicine; ATTEND Internal Medicine
PROC: 02VW3DZ Restriction of Thoracic Aorta, Descending with Intraluminal Device, Percutaneous Approach (ICD-10-PCS; principal; 2024-11-10)
PROC: 04QK0ZZ Repair Right Femoral Artery, Open Approach (ICD-10-PCS; 2024-11-10)
PROC: 04QL0ZZ Repair Left Femoral Artery, Open Approach (ICD-10-PCS; 2024-11-10)
DX: I70.0 Atherosclerosis of aorta (principal); I50.32 Chronic diastolic (congestive) heart failure; I25.10 Atherosclerotic heart disease of native coronary artery without angina pectoris; B02.9 Zoster without complications; E83.42 Hypomagnesemia; G47.33 Obstructive sleep apnea (adult) (pediatric); I11.0 Hypertensive heart disease with heart failure; I48.0 Paroxysmal atrial fibrillation; R73.9 Hyperglycemia, unspecified; J44.9 Chronic obstructive pulmonary disease, unspecified; K29.70 Gastritis, unspecified, without bleeding; Z79.01 Long term (current) use of anticoagulants; Z79.84 Long term (current) use of oral hypoglycemic drugs; Z95.5 Presence of coronary angioplasty implant and graft
CPT/HCPCS: 33881; 34713; 36415; 71045; 80048; 80053; 81003; 82948; 83036; 83605; 83735; 85014; 85018; 85025; 85610; 85730; 86850; 86900; 86901; 86923; 93005; 94664; A4344; A4606; C1760; C1887; C1894; G0378; J0360; J0461; J0690; J1644; J1815; J2250; J2371; J2405; J2704; J3010; J3475; J3490; J7030; Q9967; A4215; A4216; A4221; A4222; A4223; A4663; C1769; Q9965

== ENCOUNTER → 2025-01-01 | Outpatient (CLI) | payer OTHER ==
[~2025-01-01] MED LIST changes: +APIX5TAB PO; +DULO30CA52 PO; +FLUT15.845 NS; +HYDR12.54 PO; +HYDR50TA37 PO; +IOHEXOL-350 75 ML VIAL IV ONE; +LISI20TA24 PO; +METO-409 PO; +NITR0.4T50 SL; -RAMI10CA76 PO; +SIMV-46 PO; +VALA500T PO
--- NOTE | 2025-01-02 12:42 | HMCIMG ---
EXAM: CTA Chest with and without Intravenous Contrast for Aortic Dissection CLINICAL HISTORY: Patient evaluated for vascular graft integrity and postoperative aortic status. TECHNIQUE: Axial CTA images of the chest obtained with and without intravenous contrast using an aortic dissection protocol. MIP reconstructed images were created and reviewed. CONTRAST: 75 mL Omnipaque [id number]. COMPARISON: 10/16/2024. FINDINGS: AORTA Patent endovascular aortic repair (EVAR) graft in the aortic arch extending to the descending thoracic aorta. No evidence of aneurysm, dissection, endoleak, or graft-related complication. The aortic diameters measure 3.0 cm at the aortic root, 3.4 cm at the sinus of Valsalva, 3.5 cm at the ascending thoracic aorta, 2.8 cm at the mid aortic arch, 3.1 cm at the proximal descending thoracic aorta, 2.9 cm at the mid descending thoracic aorta, 2.6 cm at the distal descending thoracic aorta, 2.5 cm at the proximal abdominal aorta, and 2.0 cm at the included infrarenal abdominal aorta. Atheromatous wall calcifications of the thoracic and abdominal aorta, including mixed plaques at the origin of the superior mesenteric artery. PULMONARY ARTERIES No pulmonary embolus. LUNGS No mass or focal consolidation. PLEURAL SPACES No pleural effusion or pneumothorax. HEART No cardiomegaly. No pericardial effusion. LYMPH NODES No mediastinal or hilar lymphadenopathy. BONES No acute osseous abnormality. UPPER ABDOMEN Diffuse hepatic steatosis. Stable bilateral renal cortical cysts. DIAPHRAGM Mild right diaphragmatic eventration. IMPRESSION: Patent EVAR graft extending from the aortic arch to the descending thoracic aorta without evidence of aneurysm, dissection, or endoleak. Diffuse atheromatous wall calcifications of the aorta and coronary arteries with mixed plaques at the origin of the superior mesenteric artery. No pulmonary embolus. No suspicious pulmonary nodules. No pulmonary infiltrates or pleural effusions. Mild right diaphragmatic eventration. RECOMMENDATION: Follow-up CTA or MRA of the thoracic and abdominal aorta in 12 months to monitor graft integrity and aortic morphology. /[place]
== END | disposition home or self-care (01) ==
LOC: RAH 10:01
PROVIDERS: ATTEND Internal Medicine Cardiovascular Disease
DX: I70.0 Atherosclerosis of aorta (principal); I25.10 Atherosclerotic heart disease of native coronary artery without angina pectoris; K76.0 Fatty (change of) liver, not elsewhere classified; N28.1 Cyst of kidney, acquired; Z95.828 Presence of other vascular implants and grafts
CPT/HCPCS: 71275; Q9967

== ENCOUNTER 2025-01-03 05:44 | Day surgery (SDC) | payer OTHER ==
[2025-01-03] VITALS (10 sets, daily range): BP systolic 151–183; BP diastolic 71–87; PULSE 54–69; RESP 14–18; TEMP 97–98.1
[~2025-01-03] VITALS: Ht 175.3 cm; Wt 95.3 kg
[~2025-01-03 05:44] MED LIST changes: -FLUT15.845 NS; -IOHEXOL-350 75 ML VIAL IV ONE
[2025-01-03] MEDS ORDERED: FLUT15.845 NS (06:27)
[2025-01-03] MEDS: 0.9%NACL 1000ML 1,000 ML IV ONE (07:07)
--- NOTE | 2025-01-03 09:26 | NUR ---
Full and complete discharge instructions given to Patient and Family both verbally and in writing. Explained GI procedure precautions and follow up. All questions answered. PIV removed with catheter tip intact. Family at bedside appearing supportive. W/C to POV with Family to home
== END 2025-01-03 09:27 | disposition home or self-care (01) ==
LOC: ENDO 05:44 → DAH 05:44 → ENDO 09:27
PROVIDERS: ATTEND Internal Medicine
DX: R19.5 Other fecal abnormalities (principal); D12.2 Benign neoplasm of ascending colon; K21.00 Gastro-esophageal reflux disease with esophagitis, without bleeding; K57.30 Diverticulosis of large intestine without perforation or abscess without bleeding; K64.8 Other hemorrhoids; K31.819 Angiodysplasia of stomach and duodenum without bleeding; Z86.0100 Personal history of colon polyps, unspecified; I10 Essential (primary) hypertension; E78.5 Hyperlipidemia, unspecified; E11.9 Type 2 diabetes mellitus without complications; I48.91 Unspecified atrial fibrillation; Z79.899 Other long term (current) drug therapy; Z98.890 Other specified postprocedural states
CPT/HCPCS: 82948; 43239; 45385; J7030; J2704 ×2; A4620; A4215; A4223; A7002; A4222; A4221; A4663; A4606; J3490